=== PATIENT | male | born 1940 | race Caucasian/White ===

== ENCOUNTER → 2025-01-17 12:26 | Outpatient (CLI) | payer MEDICARE, OTHER, SELFPAY ==
--- NOTE | 2025-01-17 12:29 | DI.ECHO.S_ITS ---
[facility] : : [address] : [place] : : [id number] : : Phone: [phone] Echocardiogram Report + + :Name: VENITA CASTRO Study Date: 01/17/2025 Height: 74 in : :[facility] ReadingLocation: Weight: 186 lb : : Gender: Male BSA: 2.1 m2 : :: 1940 Age: 84 yrs BP: 147/76 mmHg: :Reason For Study: HYPERTENSION : :Ordering Physician: DYLAN, : :YUNG Performed By: Park Carlisle : :Referring: YUNG FLORES : + + Interpretation Summary The left ventricle is normal in size. Proximal septal thickening is noted. The ejection fraction is estimated to be 55-60%. Diastolic parameters suggest probable normal left ventricular diastolic function and normal filling pressures. The right ventricle is mildly dilated. The right ventricular systolic function is normal. The right ventricular systolic pressure is estimated to be at least 26 mmHg based on an estimated right atrial pressure of 3 mm Hg. The left atrial size is normal. There is mild aortic stenosis. The peak aortic velocity is 2.4 m/sec. The calculated aortic valve area is 1.5 cm2. There is mild to moderate aortic regurgitation. The ascending aorta is mildly enlarged. Procedure: A two-dimensional transthoracic echocardiogram with color flow and Doppler was performed. The study quality was technically adequate. Comparison is made with the echocardiogram of 08/13/2022. The patient was in sinus rhythm with heart rates between 61-67 bpm during the exam. Left Ventricle: The left ventricle is normal in size. Proximal septal thickening is noted. The ejection fraction is estimated to be 55-60%. There are no focal wall motion abnormalities. Diastolic parameters suggest probable normal left ventricular diastolic function and normal filling pressures. Right Ventricle: The right ventricle is mildly dilated. The right ventricular systolic function is normal. Atria: The left atrial size is normal. Right atrial size is normal. There is no Doppler evidence for an interatrial shunt. Mitral Valve: The mitral valve leaflets appear mildly thickened, but open well. There is mild mitral annular calcification. There is trace mitral regurgitation. Aortic Valve: The aortic valve is moderately calcified. The aortic valve is trileaflet. There is mildly reduced leaflet mobility. There is mild aortic stenosis. The peak aortic velocity is 2.4 m/sec. The aortic valve mean gradient is 14 mmHg. The calculated aortic valve area is 1.5 cm2. There is mild to moderate aortic regurgitation. Tricuspid Valve: The tricuspid valve leaflets are thin and pliable. There is mild tricuspid regurgitation. The right ventricular systolic pressure is estimated to be at least 26 mmHg based on an estimated right atrial pressure of 3 mm Hg. Pulmonic Valve: The pulmonic valve is not well visualized. There is mild pulmonic regurgitation. Great Vessels: The aortic root is normal size. The ascending aorta is mildly enlarged. The IVC is of normal diameter and collapses greater than 50% with a sniff. This suggests a low right atrial pressure of 3 mm Hg. Pericardium/ Pleura There is no pericardial effusion. There is no pleural effusion. MMode/2D Measurements & Calculations LVIDd: 4.5 cm LVOT diam: 2.0 cm LVIDs: 3.1 cm Ao root diam: 3.5 cm FS: 30.1 % asc Aorta Diam: 3.7 cm IVSd: 0.92 cm LVPWd: 0.95 cm LV [place]. diameter/BSA (cm/m^2): 2.1 LV sys. diameter/BSA (cm/m^2): 1.5 LA A2 area: 19.7 cm2 RA long axis: 5.9 cm LA A4 area: 21.1 cm2 RA area: 21.8 cm2 LA length (vol): 5.5 cm RA vol: 69.2 ml LA vol: 64.2 ml RA : 32.8 ml/m2 LA vol index: 30.5 ml/m2 IVC diam: 1.6 cm RVD1 (basal): 4.4 cm RVD2 (mid): 4.0 cm TAPSE: 2.0 cm Doppler Measurements & Calculations Ao V2 max: 238.1 cm/sec LVOT Max Gaurang: 110.6 cm/sec Ao V2 mean: 178.2 cm/sec LV V1 max P.9 mmHg Ao max P.3 mmHg LV V1 VTI: 27.9 cm Ao mean P.6 mmHg MEGAN(I,D): 1.7 cm2 Ao V2 VTI: 54.3 cm MEGAN(V,D): 1.5 cm2 sev ratio: 0.51 MEGAN indexed to BSA (cm^2/m^2): 0.80 AI P1/2t: 491.6 msec AI dec slope: 260.0 cm/sec2 MV E max gaurang: 70.9 cm/sec TR max gaurang: 237.5 cm/sec MV A max gaurang: 74.6 cm/sec TR max P.6 mmHg MV E/A: 0.95 PA V2 max: 96.1 cm/sec Med Peak E' Gaurang: 7.9 cm/sec PA V2 mean: 66.4 cm/sec E/E' med: 9.0 PA mean P.0 mmHg Lat Peak E' Gaurang: 6.5 cm/sec PA pr(Accel): 37.9 mmHg E/E' lat: 10.9 E/e' average: 9.9 MV dec time: 0.24 sec SV(LVOT): 91.8 ml Reading Physician:04:28 PM
== END ==
PROVIDERS: PCP Nurse Practitioner; Referring Provider Internal Medicine Cardiovascular Disease; Visit Provider Internal Medicine Cardiovascular Disease
DX: I08.3 Combined rheumatic disorders of mitral, aortic and tricuspid valves (principal); I77.89 Other specified disorders of arteries and arterioles; I25.10 Atherosclerotic heart disease of native coronary artery without angina pectoris; I10 Essential (primary) hypertension
CPT/HCPCS: 93306

== ENCOUNTER 2025-03-07 14:26 | Emergency (ER) | payer MEDICARE, SELFPAY ==
[2025-03-07] VITALS (45 sets, daily range): BP systolic 132–173; BP diastolic 57–79; PULSE 69–87; RESP 16–22; TEMP 36.4–37.1; O2SAT 96–99; BMI 22.5
[2025-03-07 15:19] LABS: BUN Creatinine Ratio 32.3 (6-22); Blood Urea Nitrogen 31 mg/dL (9-20); Calcium 8.2 mg/dL (8.4-10.2); Carbon Dioxide 24 mmol/L (22-32); Chloride 99 mmol/L (98-107); Estimated Glomerular Filt Rate > 60 mL/min (>60); Glucose 99 mg/dL (80-110); HEMOLYSIS < 15 (0-50); Potassium 3.6 mmol/L (3.4-5.1); Sodium 131 mmol/L (137-145)
[2025-03-07 15:23] LABS: Add Manual Diff / Slide Review NO; Basophils Absolute Auto 100 /uL (0-100); Basophils Percent Auto 0.9 % (0-2); Eosinophils Absolute Auto 200 /uL (0-450); Eosinophils Percent Auto 2.8 % (2-4); Hematocrit 22.3 % (41-53); Hemoglobin 7.8 g/dL (13.5-17.5); Lymphocytes Absolute Auto 600 /uL (1100-4500); Lymphocytes Percent Auto 9.8 % (25-40); Mean Corpuscular HGB Conc 34.9 % (30-36); Mean Corpuscular Volume 91.7 fL (80-100); Monocytes Absolute Auto 900 /uL (0-900); Monocytes Percent Auto 13.5 % (3-14); Neutrophils Absolute Auto 4800 /uL (1500-7000); Platelet Count 89 X10^3/uL (150-400); Red Blood Cell Count 2.43 X10^6/uL (4.5-5.9); Red Cell Distribution Width 18.5 % (11.6-14.8); White Blood Cell Count 6.5 X10^3/uL (4.5-11.0)
--- NOTE | 2025-03-07 16:21 | ED_ITS ---
HPI - Recheck/Abnormal Lab/Rx <Celestina Salgado, DO - Last Filed: 03/08/25 09:29> General Chief Complaint: Recheck/Abnormal Lab/Rx Stated Complaint: Blood Transfusion sent from [facility] Time Seen by Provider: 03/07/25 15:30 Source: patient Mode of arrival: Ambulatory History of Present Illness HPI narrative: 85-year-old male with a history of prostate cancer on Pluvicto, last treatment was 02/17/2025. Patient had blood drawn Friday through [facility] was found to be low. Patient was told to come for blood transfusion. Patient states he has had some shortness of breath longstanding slightly worse lately, no fevers or chills. No chest pain. No nausea or vomiting. States he has had normal stools no black or bloody stools. No urinary symptoms. Patient states he does take an aspirin 81 mg daily. Had lab draw Friday at [place] which was then sent to [facility] and then they were contacted and told to come get a blood transfusion. Patient does note a history of age 8 had a blood transfusion and was given the wrong type of blood and had a severe transfusion reaction. He was unsure if he was had any transfusion reaction since. He in his note his sodium has not recently been low, they are unsure if he has been anemic recently or what his recent hemoglobin level was. Home medications include aspirin 81 mg daily, propranolol and losartan, statin. Patient has had prior stents in his left groin and left knee. He has had a port in his right chest. Denies any drug allergies. No tobacco, alcohol or recreational drugs. Dr. Hermila Handley is his physician. Patient is accompanied by his . They live in [place]. Related Data Home Medications Medication Instructions Recorded Confirmed albuterol sulfate 90 mcg/actuation inhalation 11/02/24 11/02/24 aerosol inhaler amlodipine 5 mg tablet 5 mg PO DAILY 11/02/24 11/02/24 atorvastatin 20 mg tablet 20 mg PO DAILY 11/02/24 11/02/24 clopidogrel 75 mg tablet 75 mg PO DAILY 11/02/24 11/02/24 fluticasone 250 mcg-salmeterol 50 1 ea inhalation BID 11/02/24 11/02/24 mcg/dose blistr powdr for inhalation indapamide 1.25 mg tablet 1.25 mg PO DAILY 11/02/24 11/02/24 losartan 50 mg tablet 50 mg PO BID 11/02/24 11/02/24 propranolol 10 mg tablet 20 mg PO BID 11/02/24 11/02/24 Allergies Allergy/AdvReac Type Severity Reaction Status Date / Time No Known Drug Allergies Allergy Unverified 11/02/24 15:00 Review of Systems <Celestina Salgado DO - Last Filed: 03/08/25 09:29> Review of Systems ROS Unobtainable: All systems reviewed & are unremarkable except as noted in HPI and below Patient History <Celestina Salgado DO - Last Filed: 03/08/25 09:29> Social History Smoking Status: Never smoker Smoking Status: Never smoker Exam <Celestina Salgado DO - Last Filed: 03/08/25 09:29> Narrative Exam Narrative: GENERAL: Alert and oriented x three, male slightly pale, mild distress. HEENT: Head normocephalic, atraumatic, EOMI, pupils reactive, face symmetric, moist mucous membranes NECK: Supple, full range of motion CARDIOVASCULAR: Regular rate and rhythm without murmurs, rubs or gallops. No JVD. No edema bilateral lower extremities. RESPIRATORY: Breath sounds equal bilaterally, no wheezes rales or rhonchi. ABDOMEN: Soft, nontender. Normoactive bowel sounds all 4 quadrants. No guarding or rebound, rigidity, no mass : No CVA tenderness EXTREMITIES: Normal range of motion. Neurovascularly intact NEUROLOGICAL: Cranial nerves II through XII grossly intact. Moving all extremities SKIN: Warm, dry, no petechiae, no rashes or lesions. Initial Vital Signs Initial Vital Signs: Vital Signs Pulse Rate 83 03/07/25 14:33 Blood Pressure 169/77 H 03/07/25 14:33 Pulse Oximetry 99 03/07/25 14:33 <Silke Garcia DO - Last Filed: 03/08/25 00:28> Initial Vital Signs Initial Vital Signs: Vital Signs Pulse Rate 83 03/07/25 14:33 Blood Pressure 169/77 H 03/07/25 14:33 Pulse Oximetry 99 03/07/25 14:33 Course <Celestina C Mank, DO - Last Filed: 03/08/25 09:29> Orders Ordered: ED Orders 03/07/25 14:57 Basic Metabolic Panel Stat Complete Blood Count AUTO DIFF Stat PRBC [Packed Cells] Stat Type and Screen Stat 03/07/25 15:25 Packed Cells Irradiated Stat Vital Signs Vital signs: Vital Signs - 8 hr 03/07/25 17:44 03/07/25 17:45 03/07/25 17:45 Temperature Pulse Rate 72 Respiratory Rate Blood Pressure 153/68 H Pulse Oximetry 99 99 Oxygen Delivery Method 03/07/25 18:00 03/07/25 18:30 03/07/25 18:35 Temperature Pulse Rate 69 71 Respiratory Rate Blood Pressure 173/76 H Pulse Oximetry 96 99 Oxygen Delivery Method 03/07/25 18:35 03/07/25 19:00 03/07/25 19:30 Temperature Pulse Rate 87 72 75 Respiratory Rate 20 Blood Pressure Pulse Oximetry 99 99 98 Oxygen Delivery Method 03/07/25 20:00 03/07/25 20:14 03/07/25 20:14 Temperature 97.9 F Pulse Rate 81 79 Respiratory Rate Blood Pressure 164/71 H Pulse Oximetry 98 99 Oxygen Delivery Method 03/07/25 20:30 03/07/25 20:30 03/07/25 20:31 Temperature 98.5 F Pulse Rate 77 78 Respiratory Rate 22 Blood Pressure 154/68 H 154/68 H Pulse Oximetry 97 Oxygen Delivery Method 03/07/25 20:35 03/07/25 20:35 03/07/25 20:37 Temperature 98.7 F Pulse Rate 76 75 Respiratory Rate 16 16 Blood Pressure 151/59 H 145/66 H Pulse Oximetry 97 Oxygen Delivery Method 03/07/25 20:40 03/07/25 20:40 03/07/25 20:42 Temperature 98.0 F Pulse Rate 76 75 Respiratory Rate 16 Blood Pressure 145/66 H 142/61 H Pulse Oximetry 96 Oxygen Delivery Method 03/07/25 20:45 03/07/25 20:45 03/07/25 20:50 Temperature Pulse Rate 74 75 Respiratory Rate Blood Pressure 142/61 H Pulse Oximetry 97 97 Oxygen Delivery Method 03/07/25 20:50 03/07/25 21:00 03/07/25 21:00 Temperature Pulse Rate 79 Respiratory Rate 16 Blood Pressure 149/68 H 142/57 H Pulse Oximetry 97 Oxygen Delivery Method 03/07/25 21:15 03/07/25 21:15 03/07/25 21:30 Temperature Pulse Rate 77 Respiratory Rate Blood Pressure 153/71 H 149/66 H Pulse Oximetry 97 Oxygen Delivery Method 03/07/25 21:30 03/07/25 21:37 03/07/25 22:00 Temperature 98.7 F Pulse Rate 75 77 Respiratory Rate Blood Pressure Pulse Oximetry 96 97 Oxygen Delivery Method 03/07/25 22:15 03/07/25 22:15 03/07/25 22:16 Temperature 98.6 F Pulse Rate 76 81 Respiratory Rate 20 Blood Pressure 135/64 135/64 Pulse Oximetry 97 Oxygen Delivery Method 03/07/25 22:17 03/07/25 22:19 03/07/25 22:19 Temperature 98.5 F Pulse Rate 76 77 Respiratory Rate 22 Blood Pressure 132/63 132/63 Pulse Oximetry 96 Oxygen Delivery Method 03/07/25 22:23 03/07/25 22:28 03/07/25 22:30 Temperature 98.5 F 98 F Pulse Rate 79 76 78 Respiratory Rate 16 16 Blood Pressure 149/70 H 135/62 Pulse Oximetry 96 Oxygen Delivery Method 03/07/25 22:30 03/07/25 22:33 03/07/25 22:35 Temperature 98.8 F Pulse Rate 74 Respiratory Rate 20 Blood Pressure 141/67 H 132/63 149/70 H Pulse Oximetry Oxygen Delivery Method 03/07/25 22:35 03/07/25 22:40 03/07/25 22:40 Temperature Pulse Rate 77 79 Respiratory Rate Blood Pressure 135/62 Pulse Oximetry 97 96 Oxygen Delivery Method 03/07/25 22:45 03/07/25 22:45 03/07/25 22:50 Temperature Pulse Rate 76 Respiratory Rate Blood Pressure 132/63 144/68 H Pulse Oximetry 96 Oxygen Delivery Method 03/07/25 22:50 03/07/25 22:55 03/07/25 22:55 Temperature Pulse Rate 75 74 Respiratory Rate Blood Pressure 147/70 H Pulse Oximetry 96 96 Oxygen Delivery Method 03/07/25 23:00 03/07/25 23:00 03/07/25 23:05 Temperature Pulse Rate 77 Respiratory Rate Blood Pressure 140/65 151/72 H Pulse Oximetry 98 Oxygen Delivery Method 03/07/25 23:05 03/07/25 23:15 03/07/25 23:15 Temperature Pulse Rate 74 76 Respiratory Rate 17 Blood Pressure 145/64 H Pulse Oximetry 97 97 Oxygen Delivery Method Room Air 03/07/25 23:38 03/07/25 23:39 03/07/25 23:39 Temperature Pulse Rate 74 73 Respiratory Rate 17 Blood Pressure 156/72 H Pulse Oximetry 97 97 Oxygen Delivery Method Room Air 03/07/25 23:45 03/07/25 23:45 03/08/25 00:00 Temperature Pulse Rate 73 72 Respiratory Rate Blood Pressure 152/70 H Pulse Oximetry 97 97 Oxygen Delivery Method Room Air 03/08/25 00:00 03/08/25 00:15 03/08/25 00:15 Temperature Pulse Rate 73 Respiratory Rate 18 Blood Pressure 149/70 H 145/67 H Pulse Oximetry 97 Oxygen Delivery Method <Silke Garcia, DO - Last Filed: 03/08/25 00:28> Orders Ordered: ED Orders 03/07/25 14:57 Basic Metabolic Panel Stat Complete Blood Count AUTO DIFF Stat PRBC [Packed Cells] Stat Type and Screen Stat 03/07/25 15:25 Packed Cells Irradiated Stat Vital Signs Vital signs: Vital Signs - 8 hr 03/07/25 17:44 03/07/25 17:45 03/07/25 17:45 Temperature Pulse Rate 72 Respiratory Rate Blood Pressure 153/68 H Pulse Oximetry 99 99 Oxygen Delivery Method 03/07/25 18:00 03/07/25 18:30 03/07/25 18:35 Temperature Pulse Rate 69 71 Respiratory Rate Blood Pressure 173/76 H Pulse Oximetry 96 99 Oxygen Delivery Method 03/07/25 18:35 03/07/25 19:00 03/07/25 19:30 Temperature Pulse Rate 87 72 75 Respiratory Rate 20 Blood Pressure Pulse Oximetry 99 99 98 Oxygen Delivery Method 03/07/25 20:00 03/07/25 20:14 03/07/25 20:14 Temperature 97.9 F Pulse Rate 81 79 Respiratory Rate Blood Pressure 164/71 H Pulse Oximetry 98 99 Oxygen Delivery Method 03/07/25 20:30 03/07/25 20:30 03/07/25 20:31 Temperature 98.5 F Pulse Rate 77 78 Respiratory Rate 22 Blood Pressure 154/68 H 154/68 H Pulse Oximetry 97 Oxygen Delivery Method 03/07/25 20:35 03/07/25 20:35 03/07/25 20:37 Temperature 98.7 F Pulse Rate 76 75 Respiratory Rate 16 16 Blood Pressure 151/59 H 145/66 H Pulse Oximetry 97 Oxygen Delivery Method 03/07/25 20:40 03/07/25 20:40 03/07/25 20:42 Temperature 98.0 F Pulse Rate 76 75 Respiratory Rate 16 Blood Pressure 145/66 H 142/61 H Pulse Oximetry 96 Oxygen Delivery Method 03/07/25 20:45 03/07/25 20:45 03/07/25 20:50 Temperature Pulse Rate 74 75 Respiratory Rate Blood Pressure 142/61 H Pulse Oximetry 97 97 Oxygen Delivery Method 03/07/25 20:50 03/07/25 21:00 03/07/25 21:00 Temperature Pulse Rate 79 Respiratory Rate 16 Blood Pressure 149/68 H 142/57 H Pulse Oximetry 97 Oxygen Delivery Method 03/07/25 21:15 03/07/25 21:15 03/07/25 21:30 Temperature Pulse Rate 77 Respiratory Rate Blood Pressure 153/71 H 149/66 H Pulse Oximetry 97 Oxygen Delivery Method 03/07/25 21:30 03/07/25 21:37 03/07/25 22:00 Temperature 98.7 F Pulse Rate 75 77 Respiratory Rate Blood Pressure Pulse Oximetry 96 97 Oxygen Delivery Method 03/07/25 22:15 03/07/25 22:15 03/07/25 22:16 Temperature 98.6 F Pulse Rate 76 81 Respiratory Rate 20 Blood Pressure 135/64 135/64 Pulse Oximetry 97 Oxygen Delivery Method 03/07/25 22:17 03/07/25 22:19 03/07/25 22:19 Temperature 98.5 F Pulse Rate 76 77 Respiratory Rate 22 Blood Pressure 132/63 132/63 Pulse Oximetry 96 Oxygen Delivery Method 03/07/25 22:23 03/07/25 22:28 03/07/25 22:30 Temperature 98.5 F 98 F Pulse Rate 79 76 78 Respiratory Rate 16 16 Blood Pressure 149/70 H 135/62 Pulse Oximetry 96 Oxygen Delivery Method 03/07/25 22:30 03/07/25 22:33 03/07/25 22:35 Temperature 98.8 F Pulse Rate 74 Respiratory Rate 20 Blood Pressure 141/67 H 132/63 149/70 H Pulse Oximetry Oxygen Delivery Method 03/07/25 22:35 03/07/25 22:40 03/07/25 22:40 Temperature Pulse Rate 77 79 Respiratory Rate Blood Pressure 135/62 Pulse Oximetry 97 96 Oxygen Delivery Method 03/07/25 22:45 03/07/25 22:45 03/07/25 22:50 Temperature Pulse Rate 76 Respiratory Rate Blood Pressure 132/63 144/68 H Pulse Oximetry 96 Oxygen Delivery Method 03/07/25 22:50 03/07/25 22:55 03/07/25 22:55 Temperature Pulse Rate 75 74 Respiratory Rate Blood Pressure 147/70 H Pulse Oximetry 96 96 Oxygen Delivery Method 03/07/25 23:00 03/07/25 23:00 03/07/25 23:05 Temperature Pulse Rate 77 Respiratory Rate Blood Pressure 140/65 151/72 H Pulse Oximetry 98 Oxygen Delivery Method 03/07/25 23:05 03/07/25 23:15 03/07/25 23:15 Temperature Pulse Rate 74 76 Respiratory Rate 17 Blood Pressure 145/64 H Pulse Oximetry 97 97 Oxygen Delivery Method Room Air 03/07/25 23:38 03/07/25 23:39 03/07/25 23:39 Temperature Pulse Rate 74 73 Respiratory Rate 17 Blood Pressure 156/72 H Pulse Oximetry 97 97 Oxygen Delivery Method Room Air 03/07/25 23:45 03/07/25 23:45 03/08/25 00:00 Temperature Pulse Rate 73 72 Respiratory Rate Blood Pressure 152/70 H Pulse Oximetry 97 97 Oxygen Delivery Method Room Air 03/08/25 00:00 03/08/25 00:15 03/08/25 00:15 Temperature Pulse Rate 73 Respiratory Rate 18 Blood Pressure 149/70 H 145/67 H Pulse Oximetry 97 Oxygen Delivery Method MDM - Recheck/Abnormal Lab/Rx <Celestina Salgado, DO - Last Filed: 03/08/25 09:29> Lab Data 03/07/25 14:57 03/07/25 14:57 Labs: Lab Results 03/07/25 03/07/25 Range/Units 14:57 15:25 WBC 6.5 (4.5-11.0) X10^3/uL RBC 2.43 L (4.5-5.9) X10^6/uL Hgb 7.8 L (13.5-17.5) g/dL Hct 22.3 L (41-53) % MCV 91.7 (80-100) fL MCH 32.0 (26-34) PG MCHC 34.9 (30-36) % RDW 18.5 H (11.6-14.8) % Plt Count 89 L (150-400) X10^3/uL Neut % (Auto) 73.0 (50-75) % Lymph % (Auto) 9.8 L (25-40) % [place] % (Auto) 13.5 (3-14) % Eos % (Auto) 2.8 (2-4) % Baso % (Auto) 0.9 (0-2) % Neut # (Auto) 4800 (1678-8551) /uL Lymph # (Auto) 600 L (8806-1572) /uL [place] # (Auto) 900 (0-900) /uL Eos # (Auto) 200 (0-450) /uL Baso # (Auto) 100 (0-100) /uL Sodium 131 L (137-145) mmol/L Potassium 3.6 (3.4-5.1) mmol/L Chloride 99 (98-107) mmol/L Carbon Dioxide 24 (22-32) mmol/L BUN 31 H (9-20) mg/dL Creatinine 0.96 (0.66-1.25) mg/dL Estimated GFR > 60 (>60) mL/min BUN/Creatinine Ratio 32.3 H (6-22) Glucose 99 (80-110) mg/dL Calcium 8.2 L (8.4-10.2) mg/dL Blood Type O Positive Antibody Screen Negative Crossmatch See Detail See Detail Urine Dip Bedside Urine Glucose Negative Bedside Urine Bilirubin - Negative Bedside Urine Ketone - Negative Urine Specific [place] 1.010 Bedside Urine Occult Blood - Negative Bedside Urine pH 6.0 Bedside Urine Protein - Negative Bedside Urine Urobilinogen - Negative Bedside Urine Nitrite - Negative Bedside Urine Leukocytes - Negative Esterase MDM Narrative Medical decision making narrative: Labs show hemoglobin of 7.8 white count of 6.5 platelets are 89, priors for my comparison from 2017 attempting to obtain priors from last week. Sodium is 131, BUN 31 with otherwise appropriate electrolytes creatinine of 0.6 patient's calcium is 8.2. Stool occult Point of care urine is negative for acute change. Patient consents to blood transfusion. Notes he had a transfusion around age 6 or 8 and had a reaction. Spoke with [facility] Obando, hemoglobin was 8 with a crit of 24 last week. They do want irradiated blood cells. They note patient was told to come because he was complaining of symptoms. Spoke with lab and confirmed irradiated PRBCs as I was unable to cancel initial order of PRBCs. Patient family were anxious to make their [place] but are agreeable to stay. Are aware that we will need irradiated packed red blood cells which will come from [place] and take several hours. Patient signed out to Dr. Garcia Patient is signed out to me by Dr. Salgado. He ultimately received 2 units of packed blood cells no complications <Silke Garcia, DO - Last Filed: 03/08/25 00:28> Lab Data Labs: Lab Results 03/07/25 03/07/25 Range/Units 14:57 15:25 WBC 6.5 (4.5-11.0) X10^3/uL RBC 2.43 L (4.5-5.9) X10^6/uL Hgb 7.8 L (13.5-17.5) g/dL Hct 22.3 L (41-53) % MCV 91.7 (80-100) fL MCH 32.0 (26-34) PG MCHC 34.9 (30-36) % RDW 18.5 H (11.6-14.8) % Plt Count 89 L (150-400) X10^3/uL Neut % (Auto) 73.0 (50-75) % Lymph % (Auto) 9.8 L (25-40) % [place] % (Auto) 13.5 (3-14) % Eos % (Auto) 2.8 (2-4) % Baso % (Auto) 0.9 (0-2) % Neut # (Auto) 4800 (4863-6853) /uL Lymph # (Auto) 600 L (5458-2454) /uL [place] # (Auto) 900 (0-900) /uL Eos # (Auto) 200 (0-450) /uL Baso # (Auto) 100 (0-100) /uL Sodium 131 L (137-145) mmol/L Potassium 3.6 (3.4-5.1) mmol/L Chloride 99 (98-107) mmol/L Carbon Dioxide 24 (22-32) mmol/L BUN 31 H (9-20) mg/dL Creatinine 0.96 (0.66-1.25) mg/dL Estimated GFR > 60 (>60) mL/min BUN/Creatinine Ratio 32.3 H (6-22) Glucose 99 (80-110) mg/dL Calcium 8.2 L (8.4-10.2) mg/dL Blood Type O Positive Antibody Screen Negative Crossmatch See Detail See Detail Urine Dip Bedside Urine Glucose Negative Bedside Urine Bilirubin - Negative Bedside Urine Ketone - Negative Urine Specific [place] 1.010 Bedside Urine Occult Blood - Negative Bedside Urine pH 6.0 Bedside Urine Protein - Negative Bedside Urine Urobilinogen - Negative Bedside Urine Nitrite - Negative Bedside Urine Leukocytes - Negative Esterase MDM Narrative Medical decision making narrative: Labs show hemoglobin of 7.8 white count of 6.5 platelets are 89, priors for my comparison from 2017 attempting to obtain priors from last week. Sodium is 131, BUN 31 with otherwise appropriate electrolytes creatinine of 0.6 patient's calcium is 8.2. Stool occult Point of care urine is negative for acute change. Patient consents to blood transfusion. Notes he had a transfusion around age 6 or 8 and had a reaction. Spoke with Gordo Obando, hemoglobin was 8 with a crit of 24 last week. They do want irradiated blood cells. They note patient was told to come because he was complaining of symptoms. Patient family were anxious to make their [place] but are agreeable to stay. Are aware that we will need irradiated packed red blood cells which will come from [place] and take several hours. Patient signed out to Dr. Garcia Patient is signed out to me by Dr. Salgado. He ultimately received 2 units of packed blood cells no complications Discharge Plan Departure Patient Disposition: Home Clinical Impression: Symptomatic anemia Instructions: Anemia Activity Restrictions/Additional Instructions: *You have been diagnosed with anemia *What to do: You received 2 units of blood I hope that you start feeling better *Continue to take medications as directed *Follow up with your primary care provider in 2-3 days or call [phone] *Return to ER if you should have increased shortness of breath weakness [or] any new, worsening or concerning symptoms Prescriptions: No Action indapamide 1.25 mg tablet 1.25 mg PO DAILY amlodipine 5 mg tablet 5 mg PO DAILY fluticasone propion-salmeterol 250-50 mcg/dose blister with device 1 ea inhalation BID atorvastatin 20 mg tablet 20 mg PO DAILY propranolol 10 mg tablet 20 mg PO BID losartan 50 mg tablet 50 mg PO BID clopidogrel 75 mg tablet 75 mg PO DAILY albuterol sulfate 90 mcg/actuation HFA aerosol inhaler inhalation Referrals: Hermila Handley ARNP [Primary Care Provider] - Stand Alone Forms: Patient Portal/API/Survey
[2025-03-08] VITALS: BP 149/70; PULSE 72; RESP 18; O2SAT 97
[2025-03-08 00:15] VITALS: BP 145/67; PULSE 73; O2SAT 97
[2025-03-08 00:30] VITALS: BP 157/74; PULSE 74; O2SAT 97
[2025-03-08 00:45] VITALS: BP 157/70; PULSE 74; RESP 17; O2SAT 97
== END 2025-03-08 01:01 | disposition home or self-care (01) ==
PROVIDERS: Emergency Medicine; Emergency Provider Emergency Medicine; PCP Nurse Practitioner
DX: D64.9 Anemia, unspecified (principal); R79.89 Other specified abnormal findings of blood chemistry; R06.02 Shortness of breath; C61 Malignant neoplasm of prostate
CPT/HCPCS: 36415; 36430; 80048; 81003; 85025; 86850; 86900; 86901; 86945; 99284; 99285; P9016

== ENCOUNTER 2025-04-28 20:23 | Emergency (ER) | payer MEDICARE, OTHER, SELFPAY ==
[2025-04-28 21:38] VITALS: BP 149/67; PULSE 85; RESP 24; TEMP 36.5; O2SAT 97; BMI 21.2
[2025-04-28 22:02] LABS: Add Manual Diff / Slide Review NO; Basophils Absolute Auto 100 /uL (0-100); Basophils Percent Auto 1.1 % (0-2); Eosinophils Absolute Auto 300 /uL (0-450); Eosinophils Percent Auto 3.5 % (2-4); Hematocrit 21.1 % (41-53); Hemoglobin 7.4 g/dL (13.5-17.5); Lymphocytes Absolute Auto 1100 /uL (1100-4500); Lymphocytes Percent Auto 12.3 % (25-40); Mean Corpuscular Hemoglobin 29.9 PG (26-34); Mean Corpuscular Volume 85.4 fL (80-100); Monocytes Absolute Auto 900 /uL (0-900); Monocytes Percent Auto 9.5 % (3-14); Neutrophils Absolute Auto 6700 /uL (1500-7000); Neutrophils Percent Auto 73.6 % (50-75); Red Blood Cell Count 2.47 X10^6/uL (4.5-5.9); Red Cell Distribution Width 17.9 % (11.6-14.8); White Blood Cell Count 9.1 X10^3/uL (4.5-11.0)
[2025-04-28 22:06] LABS: Platelet Count 33 X10^3/uL (150-400)
[2025-04-28 22:11] LABS: Prothrombin Time 11.4 SECONDS (9.4-12.5)
[2025-04-28 22:13] LABS: PTT Partial Thromboplastin Tim 31 SECONDS (25.1-36.5)
[2025-04-28 22:15] LABS: Alanine Aminotransferase 24 IU/L (<50); Albumin Globulin Ratio 1.6 (1.0-2.8); Alkaline Phosphatase 254 U/L (38-126); Aspartate Aminotransferase 79 IU/L (17-59); BUN Creatinine Ratio 41.3 (6-22); Bilirubin Total 0.3 mg/dL (0.2-1.3); Blood Urea Nitrogen 38 mg/dL (9-20); Calcium 8.4 mg/dL (8.4-10.2); Carbon Dioxide 23 mmol/L (22-32); Chloride 101 mmol/L (98-107); Estimated Glomerular Filt Rate > 60 mL/min (>60); Globulin 2.5 g/dL (1.7-4.1); Glucose 110 mg/dL (70-99); HEMOLYSIS < 15 (0-50); Potassium 3.5 mmol/L (3.4-5.1); Sodium 131 mmol/L (137-145); Total Protein 6.5 g/dL (6.3-8.2)
[2025-04-28 22:21] LABS: Anisocytosis 1+; Schistocytes 1+
[2025-04-29] VITALS (27 sets, daily range): BP systolic 139–192; BP diastolic 61–85; PULSE 80–97; RESP 14–44; TEMP 36.7–36.9; O2SAT 98–100
--- NOTE | 2025-04-29 02:23 | ED.RECABL ---
HPI - Recheck/Abnormal Lab/Rx <Celestina Melba Salgado, DO - Last Filed: 05/01/25 08:05> General Chief Complaint: Recheck/Abnormal Lab/Rx Stated Complaint: pcp [facility] blood transfusion Time Seen by Provider: 04/28/25 21:37 Source: patient and family Mode of arrival: Wheelchair Limitations: no limitations History of Present Illness HPI narrative: 85-year-old male with a history of prostate cancer on Pluvicto, last treatment was 02/17/2025. Patient has had prior blood transfusions started to become symptomatic with fatigue and some increased shortness of breath with the exertion. Went to [facility] was found to have a hemoglobin in the 7 range and sent for transfusion. Patient has had a radiates blood in the past but has had contact with his oncology office and has documentation from the oncologist which was added to patient's chart this has he does not have to have a radiated blood. He was also thrombocytopenic but sounds like platelets are fairly stable in the 30s. He was not had any active bleeding. Last transfusion was at [facility]. Patient is no longer receiving treatment they have been told by their oncologist that it is too dangerous and in her oncology contacts it is noted that they have been referred to hospice but have not started with hospice. Patient and state no fevers, no chest pain, no shortness of breath at rest. No nausea or vomiting. No new swelling in extremities. No black or bloody stools or other GI or urinary symptoms. Related Data Home Medications ?Medication ?Instructions ?Recorded ?Confirmed albuterol sulfate 90 mcg/actuation inhalation 11/02/24 11/02/24 aerosol inhaler amlodipine 5 mg tablet 5 mg PO DAILY 11/02/24 11/02/24 atorvastatin 20 mg tablet 20 mg PO DAILY 11/02/24 11/02/24 clopidogrel 75 mg tablet 75 mg PO DAILY 11/02/24 11/02/24 fluticasone 250 mcg-salmeterol 50 1 ea inhalation BID 11/02/24 11/02/24 mcg/dose blistr powdr for inhalation indapamide 1.25 mg tablet 1.25 mg PO DAILY 11/02/24 11/02/24 losartan 50 mg tablet 50 mg PO BID 11/02/24 11/02/24 propranolol 10 mg tablet 20 mg PO BID 11/02/24 11/02/24 Allergies Allergy/AdvReac Type Severity Reaction Status Date / Time No Known Drug Allergies Allergy Unverified 04/28/25 21:38 Review of Systems <Celestina Salgado DO - Last Filed: 05/01/25 08:05> Review of Systems ROS Unobtainable: All systems reviewed & are unremarkable except as noted in HPI and below Patient History <Celestina Salgado DO - Last Filed: 05/01/25 08:05> Social History Smoking Status: Former smoker Smoking Status: Former smoker Exam <Celestina Salgado DO - Last Filed: 05/01/25 08:05> Narrative Exam Narrative: GENERAL: Alert and oriented x three, elderly male in mild distress HEENT: Head normocephalic, atraumatic, EOMI, pupils reactive, face symmetric, moist mucous membranes NECK: Supple, full range of motion CARDIOVASCULAR: Regular rate and rhythm without murmurs, rubs or gallops. RESPIRATORY: Breath sounds equal bilaterally, no wheezes rales or rhonchi. ABDOMEN: Soft, nontender. Normoactive bowel sounds all 4 quadrants. No guarding or rebound, rigidity, no mass : No CVA tenderness EXTREMITIES: Normal range of motion, no clubbing or edema. Neurovascularly intact NEUROLOGICAL: Cranial nerves II through XII grossly intact. Moving all extremities SKIN: Warm, dry, no petechiae, no rashes or lesions, patient has a few areas of small ecchymosis but no large areas of ecchymosis or petechiae. Initial Vital Signs Initial Vital Signs: Vital Signs Temperature 97.7 F 04/28/25 21:38 Pulse Rate 85 04/28/25 21:38 Respiratory Rate 24 04/28/25 21:38 Blood Pressure 149/67 H 04/28/25 21:38 Pulse Oximetry 97 04/28/25 21:38 Oxygen Delivery Method Room Air 04/28/25 21:38 <Jemal Inman DO - Last Filed: 04/29/25 08:46> Initial Vital Signs Initial Vital Signs: Vital Signs Temperature 97.7 F 04/28/25 21:38 Pulse Rate 85 04/28/25 21:38 Respiratory Rate 24 04/28/25 21:38 Blood Pressure 149/67 H 04/28/25 21:38 Pulse Oximetry 97 04/28/25 21:38 Oxygen Delivery Method Room Air 04/28/25 21:38 Course <Celestina Melba Salgado, DO - Last Filed: 05/01/25 08:05> Orders Ordered: ED Orders 04/29/25 02:33 PRBC [Packed Cells] Stat 04/29/25 07:40 Hemoglobin and Hematocrit Stat Vital Signs Vital signs: Vital Signs - 8 hr 04/29/25 01:24 04/29/25 01:25 04/29/25 01:25 Temperature Pulse Rate 95 H 88 Respiratory Rate 44 H Blood Pressure 192/83 H Pulse Oximetry 98 98 Oxygen Delivery Method Room Air 04/29/25 01:30 04/29/25 01:30 04/29/25 02:00 Temperature Pulse Rate 83 Respiratory Rate 23 Blood Pressure 151/68 H 139/61 Pulse Oximetry 99 Oxygen Delivery Method Room Air 04/29/25 02:00 04/29/25 02:30 04/29/25 02:30 Temperature Pulse Rate 81 81 Respiratory Rate 27 H 30 H Blood Pressure 160/70 H Pulse Oximetry 98 99 Oxygen Delivery Method Room Air Room Air 04/29/25 02:50 04/29/25 02:50 04/29/25 02:52 Temperature 98.2 F Pulse Rate 83 84 Respiratory Rate 32 H 23 Blood Pressure 157/72 H 157/72 H Pulse Oximetry 99 Oxygen Delivery Method Room Air 04/29/25 03:00 04/29/25 03:00 04/29/25 03:08 Temperature 98.3 F Pulse Rate 81 83 Respiratory Rate 26 H 21 Blood Pressure 148/62 H 148/62 H Pulse Oximetry 99 Oxygen Delivery Method Room Air 04/29/25 03:30 04/29/25 03:30 04/29/25 04:00 Temperature Pulse Rate 81 80 Respiratory Rate 22 19 Blood Pressure 159/72 H Pulse Oximetry 100 99 Oxygen Delivery Method Room Air Room Air 04/29/25 04:00 04/29/25 04:30 04/29/25 04:30 Temperature Pulse Rate 84 Respiratory Rate 22 Blood Pressure 157/72 H 177/79 H Pulse Oximetry 99 Oxygen Delivery Method Room Air 04/29/25 04:42 04/29/25 04:42 04/29/25 04:42 Temperature 98.0 F Pulse Rate 83 83 Respiratory Rate 16 35 H Blood Pressure 166/79 H 166/79 H Pulse Oximetry 100 Oxygen Delivery Method Room Air 04/29/25 04:48 04/29/25 05:00 04/29/25 05:00 Temperature 98.0 F Pulse Rate 82 80 Respiratory Rate 23 20 Blood Pressure 166/79 H 185/77 H Pulse Oximetry 99 Oxygen Delivery Method Room Air 04/29/25 05:03 04/29/25 05:05 04/29/25 05:30 Temperature 98.1 F 98.5 F Pulse Rate 83 81 82 Respiratory Rate 14 20 23 Blood Pressure 173/80 H 185/77 H Pulse Oximetry 99 Oxygen Delivery Method Room Air 04/29/25 05:30 04/29/25 06:00 04/29/25 06:01 Temperature Pulse Rate 97 H 92 H Respiratory Rate 37 H 35 H Blood Pressure 167/79 H Pulse Oximetry 99 99 Oxygen Delivery Method Room Air Room Air 04/29/25 06:01 04/29/25 06:30 04/29/25 06:30 Temperature Pulse Rate 80 Respiratory Rate 20 Blood Pressure 184/85 H 160/74 H Pulse Oximetry 99 Oxygen Delivery Method Room Air 04/29/25 06:44 04/29/25 06:44 04/29/25 07:00 Temperature Pulse Rate 83 Respiratory Rate 25 H Blood Pressure 173/80 H 179/82 H Pulse Oximetry 100 Oxygen Delivery Method Room Air 04/29/25 07:00 04/29/25 07:30 04/29/25 07:30 Temperature Pulse Rate 88 84 Respiratory Rate 31 H 25 H Blood Pressure 153/75 H Pulse Oximetry 100 98 Oxygen Delivery Method <Jemal Inman, DO - Last Filed: 04/29/25 08:46> Orders Ordered: ED Orders 04/29/25 02:33 PRBC [Packed Cells] Stat 04/29/25 07:40 Hemoglobin and Hematocrit Stat Vital Signs Vital signs: Vital Signs - 8 hr 04/29/25 01:24 04/29/25 01:25 04/29/25 01:25 Temperature Pulse Rate 95 H 88 Respiratory Rate 44 H Blood Pressure 192/83 H Pulse Oximetry 98 98 Oxygen Delivery Method Room Air 04/29/25 01:30 04/29/25 01:30 04/29/25 02:00 Temperature Pulse Rate 83 Respiratory Rate 23 Blood Pressure 151/68 H 139/61 Pulse Oximetry 99 Oxygen Delivery Method Room Air 04/29/25 02:00 04/29/25 02:30 04/29/25 02:30 Temperature Pulse Rate 81 81 Respiratory Rate 27 H 30 H Blood Pressure 160/70 H Pulse Oximetry 98 99 Oxygen Delivery Method Room Air Room Air 04/29/25 02:50 04/29/25 02:50 04/29/25 02:52 Temperature 98.2 F Pulse Rate 83 84 Respiratory Rate 32 H 23 Blood Pressure 157/72 H 157/72 H Pulse Oximetry 99 Oxygen Delivery Method Room Air 04/29/25 03:00 04/29/25 03:00 04/29/25 03:08 Temperature 98.3 F Pulse Rate 81 83 Respiratory Rate 26 H 21 Blood Pressure 148/62 H 148/62 H Pulse Oximetry 99 Oxygen Delivery Method Room Air 04/29/25 03:30 04/29/25 03:30 04/29/25 04:00 Temperature Pulse Rate 81 80 Respiratory Rate 22 19 Blood Pressure 159/72 H Pulse Oximetry 100 99 Oxygen Delivery Method Room Air Room Air 04/29/25 04:00 04/29/25 04:30 04/29/25 04:30 Temperature Pulse Rate 84 Respiratory Rate 22 Blood Pressure 157/72 H 177/79 H Pulse Oximetry 99 Oxygen Delivery Method Room Air 04/29/25 04:42 04/29/25 04:42 04/29/25 04:42 Temperature 98.0 F Pulse Rate 83 83 Respiratory Rate 16 35 H Blood Pressure 166/79 H 166/79 H Pulse Oximetry 100 Oxygen Delivery Method Room Air 04/29/25 04:48 04/29/25 05:00 04/29/25 05:00 Temperature 98.0 F Pulse Rate 82 80 Respiratory Rate 23 20 Blood Pressure 166/79 H 185/77 H Pulse Oximetry 99 Oxygen Delivery Method Room Air 04/29/25 05:03 04/29/25 05:05 04/29/25 05:30 Temperature 98.1 F 98.5 F Pulse Rate 83 81 82 Respiratory Rate 14 20 23 Blood Pressure 173/80 H 185/77 H Pulse Oximetry 99 Oxygen Delivery Method Room Air 04/29/25 05:30 04/29/25 06:00 04/29/25 06:01 Temperature Pulse Rate 97 H 92 H Respiratory Rate 37 H 35 H Blood Pressure 167/79 H Pulse Oximetry 99 99 Oxygen Delivery Method Room Air Room Air 04/29/25 06:01 04/29/25 06:30 04/29/25 06:30 Temperature Pulse Rate 80 Respiratory Rate 20 Blood Pressure 184/85 H 160/74 H Pulse Oximetry 99 Oxygen Delivery Method Room Air 04/29/25 06:44 04/29/25 06:44 04/29/25 07:00 Temperature Pulse Rate 83 Respiratory Rate 25 H Blood Pressure 173/80 H 179/82 H Pulse Oximetry 100 Oxygen Delivery Method Room Air 04/29/25 07:00 04/29/25 07:30 04/29/25 07:30 Temperature Pulse Rate 88 84 Respiratory Rate 31 H 25 H Blood Pressure 153/75 H Pulse Oximetry 100 98 Oxygen Delivery Method MDM - Recheck/Abnormal Lab/Rx <Celestina Salgado, DO - Last Filed: 05/01/25 08:05> Lab Data 04/29/25 07:40 04/28/25 21:50 Labs: Lab Results 04/28/25 04/29/25 Range/Units 21:50 07:40 WBC 9.1 (4.5-11.0) X10^3/uL RBC 2.47 L (4.5-5.9) X10^6/uL Hgb 7.4 L 8.9 L (13.5-17.5) g/dL Hct 21.1 L 25.9 L (41-53) % MCV 85.4 (80-100) fL MCH 29.9 (26-34) PG MCHC 35.0 (30-36) % RDW 17.9 H (11.6-14.8) % Plt Count 33 L* (150-400) X10^3/uL Neut % (Auto) 73.6 (50-75) % Lymph % (Auto) 12.3 L (25-40) % [place] % (Auto) 9.5 (3-14) % Eos % (Auto) 3.5 (2-4) % Baso % (Auto) 1.1 (0-2) % Neut # (Auto) 6700 (3575-3203) /uL Lymph # (Auto) 1100 (4045-8157) /uL [place] # (Auto) 900 (0-900) /uL Eos # (Auto) 300 (0-450) /uL Baso # (Auto) 100 (0-100) /uL RBC Morphology See below Anisocytosis 1+ H Schistocytes 1+ H PT 11.4 (9.4-12.5) SECONDS INR 1.0 (0.9-1.3) APTT 31 (25.1-36.5) SECONDS Sodium 131 L (137-145) mmol/L Potassium 3.5 (3.4-5.1) mmol/L Chloride 101 (98-107) mmol/L Carbon Dioxide 23 (22-32) mmol/L BUN 38 H (9-20) mg/dL Creatinine 0.92 (0.66-1.25) mg/dL Estimated GFR > 60 (>60) mL/min BUN/Creatinine Ratio 41.3 H (6-22) Glucose 110 H (70-99) mg/dL Calcium 8.4 (8.4-10.2) mg/dL Total Bilirubin 0.3 (0.2-1.3) mg/dL AST 79 H (17-59) IU/L ALT 24 (<50) IU/L Alkaline Phosphatase 254 H (38-126) U/L Total Protein 6.5 (6.3-8.2) g/dL Albumin 4.0 (3.5-5.0) g/dL Globulin 2.5 (1.7-4.1) g/dL Albumin/Globulin Ratio 1.6 (1.0-2.8) Blood Type O Positive Antibody Screen Negative Crossmatch See Detail MDM Narrative Medical decision making narrative: Patient has labs show hemoglobin of 7.4 white count of 9 1 platelets of 33, were similar yesterday and sand 1 Funk according to labs patient's family brought. Coags are negative sodium is 131 BUN 38 electrolytes are otherwise appropriate glucose is 110 AST 79 alk-phos is 254. Patient family brought documentation regarding irradiated PRBCs. They have documentation which I included in patient's chart to share with the lab that notes from patient's oncologist that he does not have to continue with the irradiated blood but can have non irradiated blood. Patient gave consent for transfusion understands risks. All questions answered. Patient signed out to me at shift change pending final disposition. Patient is status post transfusion 2 units PRBC hemoglobin initially on arrival was 7.4 and now status post transfusion is 8.9 and hematocrit 25.9. Patient is asymptomatic and feels better and would like to go home. <Jemal Inman, DO - Last Filed: 04/29/25 08:46> Lab Data Labs: Lab Results 04/28/25 04/29/25 Range/Units 21:50 07:40 WBC 9.1 (4.5-11.0) X10^3/uL RBC 2.47 L (4.5-5.9) X10^6/uL Hgb 7.4 L 8.9 L (13.5-17.5) g/dL Hct 21.1 L 25.9 L (41-53) % MCV 85.4 (80-100) fL MCH 29.9 (26-34) PG MCHC 35.0 (30-36) % RDW 17.9 H (11.6-14.8) % Plt Count 33 L* (150-400) X10^3/uL Neut % (Auto) 73.6 (50-75) % Lymph % (Auto) 12.3 L (25-40) % [place] % (Auto) 9.5 (3-14) % Eos % (Auto) 3.5 (2-4) % Baso % (Auto) 1.1 (0-2) % Neut # (Auto) 6700 (5874-1088) /uL Lymph # (Auto) 1100 (1072-6316) /uL [place] # (Auto) 900 (0-900) /uL Eos # (Auto) 300 (0-450) /uL Baso # (Auto) 100 (0-100) /uL RBC Morphology See below Anisocytosis 1+ H Schistocytes 1+ H PT 11.4 (9.4-12.5) SECONDS INR 1.0 (0.9-1.3) APTT 31 (25.1-36.5) SECONDS Sodium 131 L (137-145) mmol/L Potassium 3.5 (3.4-5.1) mmol/L Chloride 101 (98-107) mmol/L Carbon Dioxide 23 (22-32) mmol/L BUN 38 H (9-20) mg/dL Creatinine 0.92 (0.66-1.25) mg/dL Estimated GFR > 60 (>60) mL/min BUN/Creatinine Ratio 41.3 H (6-22) Glucose 110 H (70-99) mg/dL Calcium 8.4 (8.4-10.2) mg/dL Total Bilirubin 0.3 (0.2-1.3) mg/dL AST 79 H (17-59) IU/L ALT 24 (<50) IU/L Alkaline Phosphatase 254 H (38-126) U/L Total Protein 6.5 (6.3-8.2) g/dL Albumin 4.0 (3.5-5.0) g/dL Globulin 2.5 (1.7-4.1) g/dL Albumin/Globulin Ratio 1.6 (1.0-2.8) Blood Type O Positive Antibody Screen Negative Crossmatch See Detail MDM Narrative Medical decision making narrative: Patient has labs show hemoglobin of 7.4 white count of 9 1 platelets of 33, were similar yesterday and sand 1 Funk according to labs patient's family brought. Coags are negative sodium is 131 BUN 38 electrolytes are otherwise appropriate glucose is 110 AST 79 alk-phos is 254. Patient family brought documentation regarding irradiated PRBCs. They have documentation which I included in patient's chart to share with the lab that notes from patient's oncologist that he does not have to continue with the irradiated blood but can have non irradiated blood. Patient gave consent for transfusion understands risks. All questions answered. Patient signed out to me at shift change pending final disposition. Patient is status post transfusion 2 units PRBC hemoglobin initially on arrival was 7.4 and now status post transfusion is 8.9 and hematocrit 25.9. Patient is asymptomatic and feels better and would like to go home. Discharge Plan Departure Patient Disposition: Home Clinical Impression: Symptomatic anemia Activity Restrictions/Additional Instructions: You received 2 units of blood here in the emergency department. Talk with your oncology team about plans for the future. Your platelets were low but did not require transfusion but talk with your oncology team about this as well. Return to the ER if you have increased shortness of breath, fatigue, chest pain, fevers, vomiting or other new or concerning changes. Prescriptions: No Action indapamide 1.25 mg tablet 1.25 mg PO DAILY amlodipine 5 mg tablet 5 mg PO DAILY fluticasone propion-salmeterol 250-50 mcg/dose blister with device 1 ea inhalation BID atorvastatin 20 mg tablet 20 mg PO DAILY propranolol 10 mg tablet 20 mg PO BID losartan 50 mg tablet 50 mg PO BID clopidogrel 75 mg tablet 75 mg PO DAILY albuterol sulfate 90 mcg/actuation HFA aerosol inhaler inhalation Referrals: Hermila Handley ARNP [Primary Care Provider, Medical] Stand Alone Forms: Patient Portal/API
[2025-04-29 08:10] LABS: Hematocrit 25.9 % (41-53); Hemoglobin 8.9 g/dL (13.5-17.5)
== END 2025-04-29 09:05 | disposition home or self-care (01) ==
PROVIDERS: Emergency Medicine; Emergency Provider Family Medicine; PCP Nurse Practitioner
DX: D64.9 Anemia, unspecified (principal); Z85.46 Personal history of malignant neoplasm of prostate
CPT/HCPCS: 36415; 36430; 80053; 85014; 85018; 85025; 85610; 85730; 86850; 86900; 86901; 99284; P9016